=== PATIENT | female | born 1955 | race Caucasian/White ===

== ENCOUNTER 2018-04-06 04:50 | Inpatient (IN) | payer MEDICAID ==
[~2018-04-06] VITALS: Ht 167.6 cm; Wt 63.1 kg
[2018-04-06] MEDS ORDERED: L.E.T SOLUTION TP ONE (05:29)
[2018-04-06] MEDS ORDERED: SODIUM CHLORIDE FLUSH 10ML SYR IVF ONE (05:30)
[2018-04-06] MEDS ORDERED: ASPIRIN 81 MG TABLET CHEW PO ONE (05:30)
[2018-04-06] MEDS ORDERED: ASPIRIN 81 MG TABLET CHEW ONE (05:31)
[2018-04-06] MEDS ORDERED: NITROGLYCERIN SINGLE TAB 0.4 MG SL ONE (05:31)
[2018-04-06] MEDS: NITROGLYCERIN SINGLE TAB 0.4 MG SL PRN ×3 (05:38→05:48)
[2018-04-06 05:46] LABS: BASOPHILS # (AUTO) 0.02 x10^3/uL (0-0.1); BASOPHILS % (AUTO) 0 % (0-1); EOSINOPHILS # (AUTO) 0.08 x10^3/uL (0-0.4); EOSINOPHILS % (AUTO) 2 % (1-7); LYMPHOCYTES # (AUTO) 1.73 x10^3/uL (1-3.4); LYMPHOCYTES % (AUTO) 30 % (22-44); MD NO; MEAN CORPUSCULAR HEMOGLOBIN 33.1 pg (27.0-34.8); MEAN CORPUSCULAR HGB CONC 34.6 g/dL (32.4-35.8); MEAN CORPUSCULAR VOLUME 95.6 fL (80-100); MEAN PLATELET VOLUME 8.7 fL (7.4-10.4); MONOCYTES % (AUTO) 5 % (2-9); NEUTROPHILS # (AUTO) 3.62 x10^3/uL (1.8-6.8); NEUTROPHILS % (AUTO) 63 % (42-75); PLATELET COUNT 169 x10^3/uL (130-400); RED BLOOD COUNT 4.43 x10^6/uL (3.82-5.3); RED CELL DISTRIBUTION WIDTH 13.7 % (9.6-15.2)
--- NOTE | 2018-04-06 05:59 | NUR ---
PT HAVING TIGHTNESS IN CHEST IN BILAT SIDES, STARTED A FEW HOURS AGO. PT C/O FEELING LIGHT HEADED.
[2018-04-06 06:04] LABS: ALBUMIN 3.9 g/dL (3.4-5.0); ANION GAP 11 mmol/L (5-15); CALCIUM 8.6 mg/dL (8.5-10.1); CHLORIDE 105 mmol/L (98-107)
[2018-04-06 06:10] LABS: ALANINE AMINOTRANSFERASE 40 U/L (12-78); BILIRUBIN,TOTAL 0.8 mg/dL (0.2-1.0); CREATININE 1.22 mg/dL (0.55-1.02); TOTAL PROTEIN 6.9 g/dL (6.4-8.2)
[2018-04-06 06:13] LABS: ALKALINE PHOSPHATASE 81 U/L (45-117)
[2018-04-06 06:27] LABS: MICROSCOPIC AUTO
[2018-04-06 06:28] LABS: CULTURE INDICATED? YES
[2018-04-06] MEDS ORDERED: SODIUM CHLORIDE FLUSH 10ML SYR IVF PRN (07:00)
--- NOTE | 2018-04-06 07:16 | NUR ---
Recieved report from ADINA Agee. All questions answered. Assuming care of pt. First contact with pt. Pt resting on gurney connected to all monitors. NADN. Pt has call light within reach. Pt denies pain, "They gave me nitroglycerin, and it helped, so no pain, it still feels tight." All safety measures in place. No needs expressed at this time.
[2018-04-06] MEDS ORDERED: AMLO5TAB10 PO (07:22)
[2018-04-06] MEDS ORDERED: BUPR100T11 PO (07:22)
[2018-04-06] MEDS ORDERED: enalapril PO (07:22)
[2018-04-06] MEDS ORDERED: ATOR40TA78 PO (07:22)
[2018-04-06] MEDS ORDERED: METO25TA35 PO (07:22)
[2018-04-06] MEDS ORDERED: morphine SULFATE 10 MG/ML, 1ML IVPush PRN (08:00)
[2018-04-06] MEDS ORDERED: ACETAMINOPHEN 325 MG TABLET PO PRN (08:00)
[2018-04-06] MEDS: NICOTINE 7 MG/24 HR PATCH.TD24 TD SCH (08:00)
--- NOTE | 2018-04-06 08:05 | NUR ---
Provided report to ADINA Clark. All questions answered. Pt ready to transfer to floor from ED.
--- NOTE | 2018-04-06 08:21 | NUR ---
Pt transfered to floor from ED on [facility] and left with all personal belongings.
[2018-04-06] MEDS ORDERED: LORazepam 2 MG/ML, 1ML IV PRN ×4 (08:30)
[2018-04-06] MEDS ORDERED: LORazepam 1MG TABLET PO PRN ×3 (08:30)
[2018-04-06 08:53] LABS: TROPONIN I 0.016 ng/mL (0.000-0.045)
[2018-04-06 09:42] VITALS: BP 167/90
[2018-04-06] MEDS ORDERED: REGADENOSON 0.4 MG/5 ML SYRINGE ONE (09:47)
[2018-04-06] MEDS ORDERED: ENALAPRIL 5MG TABLET ONE (11:33)
[2018-04-06] MEDS: FOLIC ACID 1 MG TABLET PO SCH (11:56)
[2018-04-06] MEDS: METOPROLOL TARTRATE 25 MG TABLET PO SCH ×2 (11:56→22:20)
[2018-04-06] MEDS: ENALAPRIL 20MG TABLET PO SCH (11:56)
[2018-04-06] MEDS: MULTIVITAMIN 1 TABLET PO SCH (11:56)
[2018-04-06] MEDS: BUPROPION 100 MG TABLET PO SCH (11:56)
[2018-04-06] MEDS: NS + 20MEQ KCL 1,000 ML IV SCH ×2 (11:57→23:11)
[2018-04-06] MEDS ORDERED: ONDANSETRON ODT 4 MG PO PRN (12:00)
[2018-04-06] MEDS ORDERED: ONDANSETRON 2MG/ML, 2ML IVPush PRN (12:00)
[2018-04-06] MEDS: AMLODIPINE 5 MG TABLET PO SCH (12:02)
[2018-04-06] MEDS: HEPARIN 5,000 UNITS/ML, 1ML SQ SCH ×2 (12:04→20:36)
[2018-04-06 13:26] LABS: TROPONIN I < 0.015 ng/mL (0.000-0.045)
[2018-04-06 13:32] VITALS: BP 156/95
[2018-04-06] MEDS: PANTOPROZOLE 40MG TABLET PO SCH (20:36)
[2018-04-06 20:51] VITALS: BP 106/66
[2018-04-06] MEDS ORDERED: ATORVASTATIN 40 MG TABLET PO SCH (21:00)
[2018-04-06] MEDS: LORazepam 0.5MG TABLET PO PRN (22:04)
[2018-04-06] MEDS ORDERED: TRAZ50TA66 PO (22:18)
[2018-04-06] MEDS ORDERED: LORA0.5T PO (22:19)
[2018-04-07 01:39] VITALS: BP 136/86
[2018-04-07] MEDS: PANTOPROZOLE 40MG TABLET PO SCH (05:12)
[2018-04-07] MEDS: HEPARIN 5,000 UNITS/ML, 1ML SQ SCH ×2 (05:12→12:39)
[2018-04-07] MEDS ORDERED: ASPIRIN 81 MG TABLET EC PO SCH (06:00)
[2018-04-07 06:12] LABS: BASOPHILS # (AUTO) 0.02 x10^3/uL (0-0.1); BASOPHILS % (AUTO) 0 % (0-1); EOSINOPHILS # (AUTO) 0.09 x10^3/uL (0-0.4); EOSINOPHILS % (AUTO) 2 % (1-7); LYMPHOCYTES # (AUTO) 1.82 x10^3/uL (1-3.4); LYMPHOCYTES % (AUTO) 32 % (22-44); MD NO; MEAN CORPUSCULAR HEMOGLOBIN 33.2 pg (27.0-34.8); MEAN CORPUSCULAR HGB CONC 34.5 g/dL (32.4-35.8); MEAN CORPUSCULAR VOLUME 96.2 fL (80-100); MEAN PLATELET VOLUME 9.1 fL (7.4-10.4); MONOCYTES # (AUTO) 0.37 x10^3/uL (0.2-0.8); MONOCYTES % (AUTO) 7 % (2-9); NEUTROPHILS # (AUTO) 3.43 x10^3/uL (1.8-6.8); NEUTROPHILS % (AUTO) 60 % (42-75); PLATELET COUNT 133 x10^3/uL (130-400); RED BLOOD COUNT 3.99 x10^6/uL (3.82-5.3); RED CELL DISTRIBUTION WIDTH 13.8 % (9.6-15.2)
[2018-04-07 06:22] LABS: ALBUMIN 3.2 g/dL (3.4-5.0); ANION GAP 5 mmol/L (5-15); CALCIUM 8.1 mg/dL (8.5-10.1); CHLORIDE 106 mmol/L (98-107)
[2018-04-07 06:28] LABS: ALANINE AMINOTRANSFERASE 29 U/L (12-78); ALKALINE PHOSPHATASE 76 U/L (45-117); BILIRUBIN,TOTAL 0.9 mg/dL (0.2-1.0); CHOL/HDL RATIO 1.9; CHOLESTEROL, TOTAL 91 mg/dL (140-239); CREATININE 1.18 mg/dL (0.55-1.02); HDL CHOL % 52 % (28-40); HDL CHOLESTEROL (DIRECT) 47 mg/dL (40-60); LDL CHOLESTEROL,CALCULATED 15 mg/dL (54-169); LDL/HDL RATIO 0.3 (0.5-3.0); TOTAL PROTEIN 5.8 g/dL (6.4-8.2); TRIGLYCERIDES 146 mg/dL (50-200); VLDL CHOLESTEROL 29 mg/dL (0-25)
[2018-04-07 07:54] VITALS: BP 143/77
[2018-04-07] MEDS: NICOTINE 7 MG/24 HR PATCH.TD24 TD SCH (08:00)
[2018-04-07] MEDS ORDERED: THIAMINE 100 MG in DEXTROSE 5% 50 ML IVPB SCH (09:00)
[2018-04-07] MEDS ORDERED: ENALAPRIL 5MG TABLET ONE (09:49)
[2018-04-07] MEDS: NS + 20MEQ KCL 1,000 ML IV SCH (09:51)
[2018-04-07] MEDS: FOLIC ACID 1 MG TABLET PO SCH (09:52)
[2018-04-07] MEDS: AMLODIPINE 5 MG TABLET PO SCH (09:52)
[2018-04-07] MEDS: BUPROPION 100 MG TABLET PO SCH (09:52)
[2018-04-07] MEDS: MULTIVITAMIN 1 TABLET PO SCH (09:52)
[2018-04-07] MEDS: METOPROLOL TARTRATE 25 MG TABLET PO SCH (09:53)
[2018-04-07] MEDS: LORazepam 0.5MG TABLET PO PRN ×2 (09:53→17:43)
[2018-04-07] MEDS: ENALAPRIL 20MG TABLET PO SCH (09:53)
[2018-04-07 13:43] VITALS: BP 143/77
[2018-04-07] MEDS ORDERED: BUPR100T11 PO (14:29)
[2018-04-07] MEDS ORDERED: METO25TA35 PO (14:29)
[2018-04-07] MEDS ORDERED: AMLO5TAB10 PO (14:29)
[2018-04-07] MEDS ORDERED: THIA100T10 PO (14:29)
[2018-04-07] MEDS ORDERED: ATOR40TA78 PO (14:29)
[2018-04-07] MEDS ORDERED: FOLI-17 PO (14:29)
[2018-04-07] MEDS ORDERED: ENAL20TA PO (17:14)
== END 2018-04-07 17:48 | disposition home or self-care (01) | DRG 313 ==
LOC: ED 06:57 → EDIP 06:58 → ED 07:16 → 5SO 08:26
PROVIDERS: ADMIT Hospitalist; ATTEND Hospitalist
DX: R07.89 Other chest pain (principal); I20.0 Unstable angina; I50.32 Chronic diastolic (congestive) heart failure; F41.9 Anxiety disorder, unspecified; I11.0 Hypertensive heart disease with heart failure; F32.9 Major depressive disorder, single episode, unspecified; F10.229 Alcohol dependence with intoxication, unspecified; I44.7 Left bundle-branch block, unspecified; F17.210 Nicotine dependence, cigarettes, uncomplicated; E87.6 Hypokalemia; E78.5 Hyperlipidemia, unspecified; Z82.49 Family history of ischemic heart disease and other diseases of the circulatory system; Z91.14 Patient's other noncompliance with medication regimen
CPT/HCPCS: 36415; 71045; 78452; 80053; 80061; 80307; 81001; 83690; 83735; 83880; 84100; 84439; 84443; 84484; 85025; 87086; 93005; 93017; 93306; 99285; G0378; J1644; J2785; J3411; J3480; Q0162; A9502; C9898